=== PATIENT | male | born 1965 | race Caucasian/White ===

== ENCOUNTER 2016-08-08 16:11 | Emergency (ER) | payer SELFPAY ==
[~2016-08-08 16:11] MED LIST: HYDR1TAB12 PO
[2016-08-08 16:40] VITALS: BP 110/70
--- NOTE | 2016-08-08 16:52 | ED.ADGEN ---
Past History Past Medical History: Bipolar, CAD, COPD, Other Past Surgical History: Other Smoking: Cigarettes Alcohol Use: None Drug Use: None Adult General HPI HPI Patient is a 50-year-old male presents emergency department for staple removal from his right elbow. There are placed 10 days ago after a fall from a ladder. He denies any complications with the laceration Review of Systems Review of Systems Constitutional: Denies fever or chills [] Eyes: Denies change in visual acuity, redness, or eye pain [] HENT: Denies nasal congestion or sore throat [] Respiratory: Denies cough or shortness of breath [] Cardiovascular: No additional information not addressed in HPI [] GI: Denies abdominal pain, nausea, vomiting, bloody stools or diarrhea [] : Denies dysuria or hematuria [] Musculoskeletal: Denies back pain or joint pain [] Integument: Denies rash or skin lesions [] Neurologic: Denies headache, focal weakness or sensory changes [] Endocrine: Denies polyuria or polydipsia [] Allergies Allergies Allergies Coded Allergies Type Severity Reaction Last Updated Verified lithium Allergy Intermediate Rash 07/29/16 No Physical Exam Physical Exam Constitutional: Well developed, well nourished, no acute distress, non-toxic appearance. [] Well-healing incision is clean, dry, and intact Current Patient Data Vital Signs Vital Signs Date Time Temp Pulse Resp B/P Pulse Ox O2 Delivery O2 Flow Rate FiO2 08/08/16 16:40 97.8 98 20 95 Room Air EKG EKG [] Radiology/Procedures Radiology/Procedures [] Course & Med Decision Making Course & Med Decision Making Pertinent Labs and Imaging studies reviewed. (See chart for details) Patient tolerated staple removal without any complication. He is given supportive care and follow-up instructions. [] Final Impression Final Impression Staple removal [] Problems: Dragon Disclaimer Dragon Disclaimer This electronic medical record was generated, in whole or in part, using a voice recognition dictation system. DELONTE CHRISTIANSEN MD Aug 08, 2016 16:52
== END 2016-08-08 17:00 | disposition home or self-care (01) ==
LOC: ER 16:11
DX: S51.011D Laceration without foreign body of right elbow, subsequent encounter (principal); F17.210 Nicotine dependence, cigarettes, uncomplicated; I25.10 Atherosclerotic heart disease of native coronary artery without angina pectoris; J44.9 Chronic obstructive pulmonary disease, unspecified; Z88.8 Allergy status to other drugs, medicaments and biological substances; W11.XXXD Fall on and from ladder, subsequent encounter; Y92.89 Other specified places as the place of occurrence of the external cause; Y99.8 Other external cause status
CPT/HCPCS: 99281

== ENCOUNTER 2016-10-30 12:21 | Emergency (ER) | payer SELFPAY ==
[~2016-10-30] VITALS: Ht 170.2 cm; Wt 68.0 kg
[2016-10-30 12:29] VITALS: BP 120/71
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
[2016-10-30] MEDS ORDERED: HYDROcodone/APAP 7.5/325MG 1 TAB TABLET PO ONE (13:00)
[2016-10-30] MEDS ORDERED: ONDANSETRON ODT 4 MG TAB.RAPDIS PO ONE (13:00)
[2016-10-30] MEDS ORDERED: SMZ/TMP 800/160MG TABLET. PO ONE (13:00)
== END 2016-10-30 12:53 | disposition home or self-care (01) ==
LOC: ER 12:21
DX: K02.9 Dental caries, unspecified (principal); I25.10 Atherosclerotic heart disease of native coronary artery without angina pectoris; I10 Essential (primary) hypertension; F17.210 Nicotine dependence, cigarettes, uncomplicated; Z88.8 Allergy status to other drugs, medicaments and biological substances
CPT/HCPCS: 99284; Q0162

== ENCOUNTER 2018-03-11 01:20 | Inpatient (IN) | payer SELFPAY ==
[~2018-03-11] VITALS: Ht 170.2 cm; Wt 72.1 kg
[2018-03-11] MEDS ORDERED: LORazepam 2 MG/ML VIAL IV ONE (02:00)
[2018-03-11] MEDS ORDERED: IV NORMAL SALINE 1,000ML 1,000 ML IV ONE ×2 (02:00→04:00)
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
[2018-03-11] MEDS ORDERED: PIPERACILLIN/TAZOBACTAM 4.5 GM VIAL IV ONE (02:14)
[2018-03-11] MEDS ORDERED: IV NORMAL SALINE 50ML 50 ML ONE (02:14)
[2018-03-11] MEDS ORDERED: PIPERACILLIN/TAZOBACTAM 4.5 GM in IV NORMAL SALINE 50ML 50 ML IV ONE (02:30)
[2018-03-11 02:33] LABS: ALBUMIN 3.4 g/dL (3.4-5.0); ALBUMIN/GLOBULIN RATIO 0.9 (1.0-1.7); CALCIUM 9.2 mg/dL (8.5-10.1); CREATININE 1.1 mg/dL (0.7-1.3); GFR 70.6; POTASSIUM 3.8 mmol/L (3.5-5.1); TOTAL BILIRUBIN 0.6 mg/dL (0.2-1.0); TOTAL PROTEIN 7.4 g/dL (6.4-8.2)
[2018-03-11 02:49] LABS: BASO # 0.1 x10^3/uL (0.0-0.2); BASO % 0 % (0-3); EOS # 0.1 x10^3/uL (0.0-0.7); EOS % 1 % (0-3); HEMATOCRIT 40.6 % (39.0-53.0); HEMOGLOBIN 13.8 g/dL (13.0-17.5); LYMPH # 1.6 x10^3/uL (1.0-4.8); LYMPH % 9 % (24-48); MEAN CORPUSCULAR HEMOGLOBIN 32 pg (25-35); MEAN CORPUSCULAR HGB CONC 34 g/dL (31-37); MEAN CORPUSCULAR VOLUME 95 fL (79-100); MONO # 1.2 x10^3/uL (0.0-1.1); MONO % 7 % (0-9); NEUT # 14.8 x10^3uL (1.8-7.7); NEUT % 83 % (31-73); PLATELET COUNT 294 x10^3/uL (140-400); RED BLOOD COUNT 4.27 x10^6/uL (4.30-5.70); RED CELL DISTRIBUTION WIDTH 12.8 % (11.5-14.5); WHITE BLOOD COUNT 17.9 x10^3/uL (4.0-11.0)
[2018-03-11] MEDS ORDERED: VANCOMYCIN 1.75 GM in IV NORMAL SALINE 500ML 500 ML IV ONE (03:00)
[2018-03-11] MEDS ORDERED: VANCOMYCIN 1 GM VIAL. ONE ×2 (03:06→03:14)
[2018-03-11] MEDS ORDERED: IV NORMAL SALINE 500ML 500 ML ONE (03:06)
[2018-03-11 03:08] LABS: % BANDS 5 % (0-9); % EOS 1 % (0-5); % LYMPHS 10 % (24-48); % MONOS 3 % (0-10); % SEGS 81 % (35-66); PLT ESTIMATE ADEQUATE (ADEQUATE)
[2018-03-11] MEDS ORDERED: ONDANSETRON PF 4 MG/2 ML VIAL. IV PRN (03:15)
[2018-03-11] MEDS ORDERED: ACETAMINOPHEN 325 MG TABLET PO PRN (03:15)
[2018-03-11] MEDS ORDERED: NICOTINE 21MG PATCH. TD ONE (03:30)
--- NOTE | 2018-03-11 04:13 | RAD ---
EXAM: PA and lateral views of the left wrist DATE: 03/11/2018 2:56 AM INDICATION: Left wrist redness and swelling, possible osteo COMPARISON: No Prior FINDINGS/ IMPRESSION: Diffuse soft tissue swelling about the left wrist most prominent at the radial aspect. No evidence of acute fracture or dislocation. No definite erosive/destructive change or periostitis to suggest acute osteomyelitis. However MRI is more sensitive if clinically indicated. Electronically signed by: John Zamudio MD (03/11/2018 4:10 AM) [facility] [id number]
[2018-03-11] MEDS ORDERED: HALOPERIDOL LACT 5 MG/ML VIAL. IVP ONE ×2 (05:00→05:30)
[2018-03-11 05:25] VITALS: BP 135/69
[2018-03-11] MEDS ORDERED: diphenhydrAMINE 50 MG/ML VIAL IVP ONE (05:30)
[2018-03-11 05:40] LABS: AMPHETAMINE/METHAMPHETAMINE POS (NEG); BARBITURATES NEG (NEG); BENZODIAZEPINES NEG (NEG); CANNABINOIDS NEG (NEG); COCAINE NEG (NEG); METHADONE NEG (NEG); OPIATES NEG (NEG); PHENCYCLIDINE NEG (NEG)
[2018-03-11] MEDS ORDERED: VANCOMYCIN PER PHARMACY MC PRN (11:00)
[2018-03-11 11:08] VITALS: BP 148/69
[2018-03-11] MEDS: PIPERACILLIN/TAZOBACTAM 3.375 GM in IV NORMAL SALINE 50ML 50 ML IV SCH ×2 (13:04→18:49)
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
[2018-03-11 14:36] VITALS: BP 129/71
[2018-03-11] MEDS: VANCOMYCIN 1 GM in IV NORMAL SALINE 250ML 250 ML IV SCH (14:56)
[2018-03-11 20:02] VITALS: BP 131/72
[2018-03-11] MEDS: LACTOBACILLUS RHAMNOSUS GG 1 CAPSULE. PO SCH (21:00)
[2018-03-12] MEDS: PIPERACILLIN/TAZOBACTAM 3.375 GM in IV NORMAL SALINE 50ML 50 ML IV SCH ×3 (00:23→13:23)
[2018-03-12] MEDS: VANCOMYCIN 1 GM in IV NORMAL SALINE 250ML 250 ML IV SCH (03:17)
[2018-03-12 05:58] VITALS: BP 127/65
[2018-03-12 06:38] LABS: BASO # 0.2 x10^3/uL (0.0-0.2); BASO % 1 % (0-3); EOS # 0.2 x10^3/uL (0.0-0.7); EOS % 1 % (0-3); HEMATOCRIT 39.4 % (39.0-53.0); HEMOGLOBIN 13.4 g/dL (13.0-17.5); LYMPH # 1.8 x10^3/uL (1.0-4.8); LYMPH % 11 % (24-48); MEAN CORPUSCULAR HEMOGLOBIN 33 pg (25-35); MEAN CORPUSCULAR HGB CONC 34 g/dL (31-37); MEAN CORPUSCULAR VOLUME 96 fL (79-100); MONO # 1.2 x10^3/uL (0.0-1.1); MONO % 8 % (0-9); NEUT # 12.4 x10^3uL (1.8-7.7); NEUT % 79 % (31-73); PLATELET COUNT 289 x10^3/uL (140-400); WHITE BLOOD COUNT 15.8 x10^3/uL (4.0-11.0)
[2018-03-12 06:52] LABS: ALBUMIN 2.7 g/dL (3.4-5.0); ALBUMIN/GLOBULIN RATIO 0.7 (1.0-1.7); CALCIUM 8.5 mg/dL (8.5-10.1); GFR 78.8; TOTAL BILIRUBIN 0.8 mg/dL (0.2-1.0); TOTAL PROTEIN 6.5 g/dL (6.4-8.2)
[2018-03-12] MEDS: LACTOBACILLUS RHAMNOSUS GG 1 CAPSULE. PO SCH (08:02)
[2018-03-12 10:33] VITALS: BP 110/66
--- NOTE | 2018-03-13 00:13 | DS ---
DATE OF DISCHARGE: 03/12/2018 HOSPITAL COURSE: The patient is a 52-year-old male patient who was admitted through the Emergency Room with cellulitis of his left wrist and hand. He was admitted, started on IV antibiotic in the form of vancomycin and Zosyn. An attempt at incision and drainage of his possible abscess was done at Emergency Room with descent output. Blood cultures were ordered, sent and his blood culture has grown gram-positive cocci in 1 out of 2 bottles. The identification and sensitivity is still pending. The wound culture showed no white cell count and no organisms were seen. Given that there is worsening of his swelling in his hand and wrist and possible abscess, a decision was made to transfer him to [facility] to continue the IV antibiotic, to consult Infectious Disease as well as arrange for an MRI and consult orthopedic surgeon in case he needs incision and drainage. PHYSICAL EXAMINATION: GENERAL: When I saw him today, he looked well and was clearly in no apparent respiratory distress. No pallor, jaundice, cyanosis, or thyromegaly. No jugular venous distension. No limb edema. VITAL SIGNS: His heart rate was 89, blood pressure was 110/66, temperature was 99.8, respiratory rate was 18 and oxygen saturation was 96%. HEAD, EYES, EARS, NOSE AND THROAT: Showed normocephalic, atraumatic. NECK: Supple. HEART: Showed normal first and second heart sounds with no gallop, rub or murmur. CHEST: Clear to auscultation. No crepitation or rhonchi. ABDOMEN: Distended, soft, nontender. No guarding or rigidity. No organomegaly. Hernial orifice intact. Bowel sounds normal. NEUROLOGIC: He is awake, alert, responding appropriately. Cranial nerves intact. EXTREMITIES: He moves extremities without difficulty. The redness and swelling of his left hand and wrist and forearm was definitely worse than yesterday. LABORATORY DATA: Showed a white cell count of 15,800, hemoglobin 13, hematocrit 39, MCV 96, and platelet count 269,000. Serum sodium was 135, potassium 4, chloride 100, bicarbonate 24, anion gap of 11, BUN 8, creatinine 1, estimated GFR was 78 mL per minute. His glucose was 79, calcium was 8.5. Total bilirubin, AST, ALT, alkaline phosphatase were normal. Total protein was 6.5, albumin was 2.7. His toxic screen was positive for amphetamine, methamphetamine, although the patient vehemently denied injecting drugs in his left wrist. DISCHARGE MEDICATIONS: The patient was transferred to [facility] to continue on IV vancomycin 1 gram IV twice a day, piperacillin/tazobactam 3.375 grams IV q. 6 hourly, fentanyl 50 mcg IV every 3 hours, together with Tylenol 650 mg every 4 hours for pain or fever. FINAL DISCHARGE DIAGNOSES: 1. Left upper extremity cellulitis with a possible abscess in his left wrist joint. 2. Hypertension. 3. Coronary artery disease. 4. Polysubstance abuse. 5. Bipolar disorder. RADHA FLAHERTY MD DR: KIRK/merrick JOB#: [id number] / [id number]
== END 2018-03-12 13:46 | disposition short-term general hospital (02) | DRG 603 ==
LOC: ER 01:20 → 1 SOUTH 03:10
PROVIDERS: ADMIT Neuromusculoskeletal Medicine & OMM; ATTEND Neuromusculoskeletal Medicine & OMM
PROC: 0X9H3ZZ Drainage of Left Wrist Region, Percutaneous Approach (ICD-10-PCS; principal; 2018-03-11)
DX: L02.414 Cutaneous abscess of left upper limb (principal); F17.210 Nicotine dependence, cigarettes, uncomplicated; L03.114 Cellulitis of left upper limb; F31.9 Bipolar disorder, unspecified; I10 Essential (primary) hypertension; F15.10 Other stimulant abuse, uncomplicated; I25.10 Atherosclerotic heart disease of native coronary artery without angina pectoris; Z88.8 Allergy status to other drugs, medicaments and biological substances
CPT/HCPCS: 10060; 36415; 73100; 80053; 80307; 83605; 85007; 85025; 87040; 87070; 96365; 96367; 96375; J1630; J2060; J2543; J3010; J3370; J7040; J7050; 99285-25; G0479; J7030

== ENCOUNTER 2018-03-18 07:12 | Emergency (ER) | payer SELFPAY ==
[~2018-03-18] VITALS: Ht 170.2 cm; Wt 74.8 kg
[2018-03-18 07:15] VITALS: BP 136/73
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
== END 2018-03-18 07:50 | disposition home or self-care (01) ==
LOC: ER 07:12
DX: L02.414 Cutaneous abscess of left upper limb (principal); F17.210 Nicotine dependence, cigarettes, uncomplicated; Z88.8 Allergy status to other drugs, medicaments and biological substances
CPT/HCPCS: 99283